=== PATIENT | female | born 1990 | race Caucasian/White ===

== ENCOUNTER 2016-12-29 13:33 | Emergency (ER) | payer OTHER ==
[~2016-12-29] VITALS: Ht 152.4 cm; Wt 43.0 kg
[2016-12-29 13:33] VITALS: Ht 152.4 cm; Wt 43.0 kg
--- NOTE | 2016-12-29 14:43 | ERPDOC ---
Departure Disposition Decision Date: Dec 29, 2016 Disposition Decision Time: 17:13 Disposition: 01 DISCHARGED HOME, SELF-CARE Impression Impression Impression: Primary Impression: Abdominal pain of unknown etiology Condition: Improved Seen By: Mid-level only Referrals: KASEY DIAZ MD (Family) Patient Instructions: Abdominal Pain (ED) Problems/Meds/Labs Reviewed?: Yes Medications reviewed and manag: Yes Additional Instructions: Your labs are normal today. The string in your IUD is visible. You may take OTC ibuprofen or Tylenol for pain. Follow up with your OB/PCP if your symptoms are not improving Saturday for re- evaluation. I would avoid sexual intercourse until your pain has completely resolved or you have followed up with your PCP. Follow up care ordered?: Yes Mental Status: Alert, Oriented HPI - Female General Chief Complaint: Female Urogenital Problems Stated Complaint: SHARP ABD PAINS Time Seen by Provider: 14:42 Source: patient HPI - Female Initial Comments 26-year-old female presents to ER with medial lower abdominal pain that started after having sexual intercourse last evening. Patient is concerned that intercourse may have moved her IUD and is requesting that it be checked for placement. Patient reports she has intermittent cramping since she has had the IUD in place and pain is similar to that. However pain has been more persistent. Patient denies fever, chills, nausea, vomiting vaginal bleeding, new vaginal discharge. Patient does not "really have periods" since IUD placed, only occasional spotting. She reports a monogamous relationship with her . Patient has not taken anything for pain. Patient concerned she might be . Pain Scale: Now: 1/10 Severity/Quality: aching, cramping, sharpness Associated Symptoms: abdominal pain, DENIES: diaphoresis, dysuria, fever/chills , loss of bladder control, lower back pain, lumps, mass, nausea/vomiting, nocturia, polyuria, swelling, syncope, urinary frequency Allergies: Coded Allergies: No Known Allergies (Unverified , 12/29/16) 1 - Reports pain Past History Past Medical History Metabolic: DENIES: diabetes Cardiac: DENIES: angina Respiratory: DENIES: asthma GI: DENIES: ulcers Female: DENIES: renal insufficiency Neurological: DENIES: seizures Musculoskeletal: DENIES: rheumatoid arthritis Psychological: depression Surgical History Denies Surgeries Family History Family PMH: FOUND: other (noncontributory) Social History Marital Status: Sexuality: male partner Review of Systems Constitutional Constitutional: DENIES: chills, dizziness, fever, weakness Eyes General: DENIES: erythema, exudate Lids/Accessories: DENIES: erythema, swelling ENMT Ears: DENIES: pain Hearing: DENIES: hearing loss Sinuses: DENIES: congestion, rhinorrhea Mouth/Throat: DENIES: sore throat Cardiovascular Cardiac: DENIES: chest pain, murmur Rhythm/Rate: DENIES: palpitations Pulmonary Respiratory: DENIES: cough, dyspnea GI Upper Abdomen: DENIES: nausea, pain, vomiting Lower Abdomen: pain, see HPI, DENIES: blood in stool, diarrhea General: DENIES: dysuria, frequency, pain, urgency Musculoskeletal General: DENIES: joint pain, pain, tenderness Integumentary Skin: DENIES: color change, itching, rash Neurological General: DENIES: ataxia, change in strength, numbness, paralysis/paresis, weakness Psychiatric Psychiatric: DENIES: anxiety, depression, nervousness Physical Exam General General Nourishment: well nourished, adult, thin General Body Habitus: well groomed Vitals and Pain First Documented Vital Signs Date Time Temp Pulse Resp B/P Pulse Ox O2 Delivery O2 Flow Rate FiO2 12/29/16 13:33 82 14 Weight: Kilograms: 43.000 Height (feet): 5 Height (inches): 0 Triage Pain Scale: Eyes (brief) Eyes Brief: found: EOMI ENMT (brief) ENMT Brief: NOT FOUND: nasal exudate, nasal swelling Neck (brief) Neck: FOUND: trachea midline Respiratory (brief) Respiratory: FOUND: clear all guzman, equal bilaterally, symmetrical Cardiovascular (brief) Cardiac: FOUND: regular rate, regular rhythm Abdomen Inspection: NOT FOUND: distention Palpation: FOUND: soft, tender (Mild TTP LLQ), voluntary guarding, NOT FOUND: McBurney's point tender, hepatomegaly, involuntary guarding, rebound, splenomegaly Auscultation: FOUND: normoactive (x4) Vulva: NOT FOUND: ecchymosis, erythema Vagina: FOUND: color (pink), moisture (moist), NOT FOUND: blood Cervix: FOUND: IUD (string intact), color (pink), NOT FOUND: bleeding, dilation , lesion, motion tenderness Uterus: NOT FOUND: enlarged, tender Ovaries: NOT FOUND: enlarged, fullness, tender Musculoskeletal (brief) Musculoskeletal Brief: NOT FOUND: deformity, loss of motion Integumentary (brief) Integumentary Brief: FOUND: dry, pink, warm Neurologic (brief) Neurological Brief: FOUND: motor-no gross deficits, sensory-no gross deficits Psychiatric (brief) Psychiatric Brief: FOUND: alert, normal affect, oriented Differential Diagnoses Considering: Appendicitis, Constipation/Obstipation, Endometriosis, Endometritis, Ovarian Cyst, PID, UTI Progress Results/Orders Orders Procedure Category Date Status Time Ua, Dip Wreflex LAB 12/29/16 Complete Microsc & Facsimile Operator 15:09 LAB 12/29/16 Complete Qualitative, Urine 15:09 Cbc W/Auto LAB 12/29/16 Complete Diff-Reflex Manual Cmp - Comprehensive LAB 12/29/16 Complete Metabolic Ketorolac (Toradol) PHA 12/29/16 Complete 16:15 Lab Results Laboratory Tests Test 12/29/16 15:43 12/29/16 15:54 White Blood Count 6.9T/MM3 Red Blood Count 4.64M/MM3 Hemoglobin 14.0GM/DL Hematocrit 40.1% Mean Corpuscular Volume 86.4UM3 Mean Corpuscular Hemoglobin 30.2UUG Mean Corpuscular Hemoglobin Concent 34.9GM/DL RDW Standard Deviation 37.1FL Platelet Count 209T/MM3 Mean Platelet Volume 9.5UM3 Immature Granulocyte % (Auto) 0.1% Neutrophils (%) (Auto) 58.2% Lymphocytes (%) (Auto) 29.9% Monocytes (%) (Auto) 10.2% Eosinophils (%) (Auto) 1.2% Basophils (%) (Auto) 0.4% Absolute Immature Granulocyte (auto 0.01T/MM3 Absolute Neutrophils (auto) 4.0T/MM3 Absolute Lymphocytes (auto) 2.1T/MM3 Absolute Monocytes (auto) 0.7T/MM3 Absolute Eosinophils (auto) 0.1T/MM3 Absolute Basophils (auto) 0.0T/MM3 Turbidity < 20 Sodium Level 142MEQ/L Potassium Level 4.0MEQ/L Chloride Level 107MEQ/L Carbon Dioxide Level 26MEQ/L Anion Gap 9MEQ/L Blood Urea Nitrogen 10.0MG/DL Creatinine 0.7MG/DL Glomerular Filtration Rate Calc 100 BUN/Creatinine Ratio 14RATIO Glucose Level 94MG/DL Calculated Osmolality 272MOSM/KG Calcium Level 9.5MG/DL Total Bilirubin 0.70MG/DL Icterus Index < 2 Aspartate Amino Transf (AST/SGOT) 20U/L Alanine Aminotransferase (ALT/SGPT) 25U/L Alkaline Phosphatase 51U/L Total Protein 7.3G/DL Albumin 4.3G/DL Globulin 3.0G/DL Albumin/Globulin Ratio 1.4RATIO Chemistry Specimen Hemolysis < 15 Urine Collection Type Cleancatch-midstream Urine Color Yellow Urine Turbidity Clear Urine pH 6.5 Urine Specific [place] <=1.005 Urine Protein Negative Urine Glucose (UA) Negative Urine Ketones Negative Urine Blood Negative Urine Nitrite Negative Urine Bilirubin Negative Urine Urobilinogen 0.2EU/DL Urine Leukocyte Esterase Negative Urinalysis Comment Microscopic not ind. Urine Test Negative Medications Current ED Medications Ketorolac Tromethamine (Toradol) 15 mg O ONCE IM Last administered on t 16:48; Start 12/29/16 at 16:15; Stop 12/29/16 at 16:16; Status DC Progress Progress I discussed with patient that her labs are normal. That is negative and that IUD appears to be in place. I discussed treatment plan, follow up with [facility] [employer]/PCP and return precaution which patient verbalized understanding. Patient reports her pain is complete gone at this time. RALPH IRAHETA APRN Dec 29, 2016 14:43
[2016-12-29] MEDS ORDERED: ESCI5TAB8 PO (14:53)
[2016-12-29] MEDS ORDERED: MULT-933 PO (14:53)
[2016-12-29] MEDS ORDERED: ASCO-324 PO (14:53)
[2016-12-29] MEDS ORDERED: CALC-1072 PO (14:53)
[2016-12-29 15:57] LABS: BLOOD, URINE NEGATIVE (NEGATIVE); COLOR,URINE YELLOW (YELLOW); LEUKOCYTE ESTERASE ,URINE NEGATIVE (NEGATIVE); NITRITE,URINE NEGATIVE (NEGATIVE); UROBILINOGEN,URINE 0.2 EU/DL (NORMAL)
[2016-12-29 15:59] LABS: BASOPHILS % (AUTO) 0.4 % (0-2); EOSINOPHILS # (AUTO) 0.1 T/MM3 (0-0.5); EOSINOPHILS % (AUTO) 1.2 % (0-4); HCT - HEMATOCRIT 40.1 % (36-46); IMMATURE GRANULOCYTE # (AUTO) 0.01 T/MM3 (0.00-0.03); IMMATURE GRANULOCYTE % (AUTO) 0.1 % (0.0-0.5); LYMPHOCYTES # (AUTO) 2.1 T/MM3 (1-4.8); LYMPHOCYTES % (AUTO) 29.9 % (23-45); MEAN CORPUSCULAR HGB 30.2 UUG (26-34); MEAN CORPUSCULAR HGB CONC(MCHC 34.9 GM/DL (31-37); MEAN CORPUSCULAR VOLUME 86.4 UM3 (80-100); MEAN PLATELET VOLUME 9.5 UM3 (9.4-12.4); MONOCYTES # (AUTO) 0.7 T/MM3 (0-0.8); MONOCYTES % (AUTO) 10.2 % (0-9.0); NEUTROPHILS % (AUTO) 58.2 % (33-66); RED BLOOD COUNT 4.64 M/MM3 (4.00-5.20); WBC - WHITE BLOOD COUNT 6.9 T/MM3 (4.5-11.0)
[2016-12-29 16:06] LABS: ALBUMIN 4.3 G/DL (3.5-5.0); ALBUMIN/GLOBULIN RATIO 1.4 RATIO (1.1-2.2); ALKALINE PHOSPHATASE 51 U/L (38-126); ALT (SGPT) 25 U/L (9-52); ANION GAP 9 MEQ/L (5-15); AST (SGOT) 20 U/L (14-36); BUN/CREATININE RATIO 14 RATIO (6-26); CALCIUM 9.5 MG/DL (8.4-10.2); CHLORIDE 107 MEQ/L (98-107); CO2 - CARBON DIOXIDE 26 MEQ/L (22-30); CREATININE 0.7 MG/DL (0.7-1.2); GLOMERULAR FILTRATION RATE 100; GLUCOSE 94 MG/DL (65-110); SODIUM 142 MEQ/L (134-144); TOTAL PROTEIN 7.3 G/DL (6.3-8.2)
[2016-12-29] MEDS ORDERED: KETOROLAC 30mg/ml INJECTION IM ONE (16:15)
[2016-12-29 17:30] VITALS: BP 117/73; PULSE 78; RESP 14; TEMP 98.1; O2SAT 99
== END 2016-12-29 17:30 | disposition home or self-care (01) ==
LOC: ED 13:33
DX: R10.30 Lower abdominal pain, unspecified (principal)
CPT/HCPCS: 36415; 80053; 81003; 81025; 85025; 96372; 99283; J1885

== ENCOUNTER → 2017-01-03 | Outpatient (CLI) | payer OTHER ==
[~2017-01-03] MED LIST: ASCO-324 PO; CALC-1072 PO; ESCI5TAB8 PO; MULT-933 PO
--- NOTE | 2017-01-03 11:00 | DI ---
Indication: ITS.REASON: R10.2 PELVIC AND PERINEAL PAIN PROCEDURE: US PELVIC (NON-OB): Encounter: Initial Comparison: None FINDINGS: Transabdominal pelvic imaging was performed. The uterus measures 8.2 x 2.8 x 4.4 cm. The parenchyma is homogeneous without fibroids. Intrauterine device appears appropriately positioned. Both ovaries are identified and normal in appearance. The right ovary measures 2.1 x 1.7 x 2 cm. The left ovary measures 2.5 x 2.1 x 3 cm. There are no abnormal adnexal masses detected. Normal Doppler flow to both ovaries. No free fluid. IMPRESSION: Unremarkable pelvic sonogram. .
== END ==
LOC: IMA 09:37
PROVIDERS: ATTEND Family Medicine
DX: R10.2 Pelvic and perineal pain (principal)